=== PATIENT | female | born 1950 | race Caucasian/White ===

== ENCOUNTER → 2019-03-24 | Outpatient (CLI) | payer MEDICARE ==
[2019-01-26 11:00] VITALS: BP 151/55
[~2019-03-24] MED LIST: ALEN70TA3 PO; BISO1TAB PO; BUDE0.5A NEB; BUPR150T15 PO; CALC-498 PO; DOXY100C14 PO; IPRA3AMP29 NEB; LOSA1TAB25 PO; LOVA10TA PO; METF500T16 PO; OMEP20CA16 PO; PRED20TA PO; VIT1TABL32 PO
--- NOTE | 2019-03-24 15:17 | RAD ---
CT CHEST WO CONTRAST Indication: Lung nodule Technique: Noncontrast CT imaging was performed of the chest, multiplanar reconstruction images submitted. One or more of the following individualized dose reduction techniques were utilized for this examination: 1. Automated exposure control 2. Adjustment of the mA and/or kV according to patient size 3. Use of iterative reconstruction technique. Comparison: January 25, 2019 Findings: There is some motion. There has been interval variable change. Previously seen focus of groundglass density of the right upper lobe closer to the apex is no longer present. However there are new foci of mild infiltrate and nodularity right upper lobe image 93 with largest focus of density about 0.9 cm, new focus of subsolid density of the right upper lobe image 120 series 8 up to 1.4 cm, new focus of groundglass density of the right upper lobe 0.8 cm image 133 series 8. Approximate 0.7 cm focus of subpleural nodularity of the left lower lobe image 208 series 8 is similar. There are also areas of likely atelectasis and mild groundglass density of the left lower lobe near the base fairly similar appearance such as seen image 245. 0.5 cm left lower lobe nodule image 158 is similar. There is new focus of groundglass density of the left lower lobe image 150 about 1.2 cm. Approximate 1.1 cm AP focus of somewhat tubular appearing density of the left upper lobe anteriorly extending to the pleural surface is stable in appearance. Heart is somewhat enlarged. There is no pleural or pericardial fluid. There is some coronary calcification. Thoracic cord caliber is within normal limits. No new significantly enlarged nodes are identified of the chest. There is nonspecific heterogeneity of the thyroid gland with foci of underlying nodularity as seen previously. Fullness of the left adrenal gland with underlying nodularity about 2.1 cm is similar, density measurements of about 15 Hounsfield units not diagnostic of underlying lipid rich adenoma. There has been cholecystectomy. There is multilevel thoracic spondylosis. IMPRESSION: 1. Compared with the previous January 2019 exam, there has been variable change with resolution of previously seen focus of right upper lobe groundglass density although new foci of groundglass density and mild nodularity as stated. Given the interval change, sequela of an inflammatory or infectious process seems more likely than neoplastic process although continued follow-up is recommended such as in 3-6 months as per revised Fleischner guidelines. 2. There are foci of hypodense nodularity of the thyroid gland better characterized by ultrasound. 3. There is stable nonspecific left adrenal nodule. Electronically signed by: Josh Cortés MD (03/24/2019 3:14 PM) [id number]
== END | disposition home or self-care (01) ==
LOC: CT 09:15
PROVIDERS: ATTEND Internal Medicine Critical Care Medicine
DX: R91.8 Other nonspecific abnormal finding of lung field (principal); M47.814 Spondylosis without myelopathy or radiculopathy, thoracic region; E27.8 Other specified disorders of adrenal gland; I25.10 Atherosclerotic heart disease of native coronary artery without angina pectoris
CPT/HCPCS: 71250

== ENCOUNTER → 2019-08-23 | Outpatient (CLI) | payer MEDICARE ==
[2019-01-26 11:00] VITALS: BP 151/55
--- NOTE | 2019-08-23 10:58 | RAD ---
CT scan of the chest without contrast 08/23/2019 CLINICAL HISTORY: Lung nodule. TECHNIQUE: Unenhanced, contiguous, 0.625 mm axial sections were obtained through the chest and upper abdomen. 5 mm reconstructed axial and 1 mm reconstructed axial 3 mm sagittal and coronal reconstructed images were obtained. One or more of the following individualized dose reduction techniques were utilized for this study: 1. Automated exposure control. 2. Adjustment of the mA and/or kV according to patient size. 3. Use of iterative reconstruction technique. FINDINGS: Comparison study is dated 03/24/2019. Atherosclerotic calcification of the thoracic aorta and its branches is noted. The thoracic aorta is tortuous but tapers normally. The heart is mildly enlarged. Scattered coronary artery calcifications are seen. Likely reactive mediastinal lymph nodes are seen which measure 1 to 2.3 cm in size. They are unchanged. No hilar or axillary lymphadenopathy is seen. The area of groundglass attenuation with associated nodularity seen on the previous examination within the right upper lobe has resolved. An area of scarring is seen involving the apex of the left upper lobe, unchanged. Subsegmental atelectasis is seen involving the medial aspect of the right middle lobe. Subsegmental atelectasis is seen involving the inferior lingula. The patchy areas of groundglass attenuation seen throughout both lungs on the previous examination have improved. A 5 mm nodular opacity is seen within the medial aspect of the left lower lobe. This is unchanged from the previous examination. A 5 mm pleural-based nodular opacity is seen involving the left lower lobe more inferiorly. This has decreased in size since the previous study where it measured 7 mm in size. Dependent subsegmental atelectasis is seen involving both lower lobes, left greater than right which has improved. No additional pulmonary nodule is seen. No pleural effusion or pneumothorax is noted. Images through the upper abdomen demonstrate atherosclerotic calcification of the abdominal aorta and its branches. Surgical clips are seen within the gallbladder fossa consistent with a cholecystectomy. Degenerative changes are seen involving the thoracic spine. IMPRESSION: 1. The area of groundglass attenuation with associated nodularity seen on the previous examination within the right upper lobe has resolved. 2. Two nodular opacities are seen within the left lobe lower lobe which are unchanged and/or have decreased in size since the previous study as discussed above. No new pulmonary nodule is seen. Electronically signed by: Reg Cline MD (08/23/2019 10:55 AM) [id number]
== END | disposition home or self-care (01) ==
LOC: CT 10:42
PROVIDERS: ATTEND Internal Medicine Critical Care Medicine
DX: R91.1 Solitary pulmonary nodule (principal); I70.0 Atherosclerosis of aorta; I25.10 Atherosclerotic heart disease of native coronary artery without angina pectoris; Q25.46 Tortuous aortic arch
CPT/HCPCS: 71250

== ENCOUNTER → 2019-11-21 | Outpatient (CLI) | payer MEDICARE ==
[2019-01-26 11:00] VITALS: BP 151/55
[~2019-11-21] MED LIST changes: +ZOLPIDEM 5 MG TABLET. PO ONE
--- NOTE | 2019-11-22 17:56 | SLEEP ---
DATE OF STUDY: 11/21/2019 ATTENDING PHYSICIAN: Dr. Kyle Gonzalez The patient is a 69-year-old who weighs 235 pounds with a BMI of 45. The patient's Pittsburgh score was 10. The patient underwent sleep study performed at [facility]. This was a split night study. During the night study, the patient spent 401 minutes in bed and slept for 200 minutes with a low sleep efficiency of 50%. Sleep latency was 119 minutes with a REM latency of 227 minutes. Sleep architecture showed normal stage 1 and stage 2 sleep, increased slow wave and reduced REM sleep. During the initial diagnostic portion of the study, the patient slept for 72 minutes. During that time, the patient had 1 obstructive apnea, no mixed or central apneas and 26 hypopneas. The patient's AHI was 23 per hour with a supine AHI of 23 per hour. REM sleep was not seen during the diagnostic portion. EKG monitoring revealed normal sinus rhythm. Average heart rate 78 beats per minute. No significant PLM seen. Nocturnal oximetry study revealed a mean oxygen saturation of 94% with lowest of 67%. 66% of time oxygen saturation remained between 80% and 89%. The patient met the criteria for CPAP initiation. It was started at 5 cm water and titrated up to 15 cm water. At the final pressure, the patient slept for 55 minutes. The patient had supine as well as REM sleep. The patient's AHI was reduced to 0 per hour and oxygen saturation remained above 88%. The patient used small size full face mask. IMPRESSION: 1. Moderate obstructive sleep apnea at an AHI of 23 per hour. Absence of REM sleep during the diagnostic portion can underestimate the severity of sleep apnea. 2. Nocturnal hypoxia secondary to obstructive sleep apnea, but resolved with CPAP. 3. No clinically significant periodic limb movements. RECOMMENDATIONS: 1. CPAP at 15 cm water completely eliminated the patient's sleep apnea and should be used on a nightly basis. 2. Follow up in 4-6 weeks to assess compliance with CPAP and to document clinical improvement. 3. Weight loss is strongly advised. 4. Avoid [employer] depressants. 5. Cautioned regarding driving until symptoms of sleep apnea resolve with the use of CPAP. EMANUEL RENEE MD DR: IZA/dain JOB#: [id number] / [id number] KYLE Shaikh MD
== END | disposition home or self-care (01) ==
LOC: SLPLAB 19:04
PROVIDERS: ATTEND Internal Medicine Critical Care Medicine
DX: G47.33 Obstructive sleep apnea (adult) (pediatric) (principal)
CPT/HCPCS: 95810

== ENCOUNTER → 2020-03-01 | Outpatient (CLI) | payer MEDICARE ==
[2019-01-26 11:00] VITALS: BP 151/55
[~2020-03-01] MED LIST changes: -ZOLPIDEM 5 MG TABLET. PO ONE
--- NOTE | 2020-03-02 09:33 | RAD ---
Examination: CT THORAX WO History: lung nodule / Comparison/Correlation: None Findings: Axial images of chest were obtained without contrast. Sagittal and coronal reformatted imag es were provided. Linear atelectasis or scarring in the left lung base is present. Minimal right costophrenic sulcus at electasis is present. No pneumothorax. No enlarged thoracic lymph nodes. Nodule at the medial left mid lung on axial image 150 of series 8 measures up to 0.5 cm diameter scott lar to prior exam. Left posterolateral basilar linear atelectasis adjacent to the pleura is present o n axial image 219 of series 8 and obscures a juxtapleural nodule previously seen measuring up to 0.6 cm diameter. Groundglass infiltrate at the posterior right upper and midlung region on axial image 137 of series 8 measuring 0.8 cm diameter noted. No pleural or pericardial effusion. Cholecystectomy noted. Adenomatous involvement of the left adrena l gland is noted. No acute bony process. Impression: Some new groundglass infiltrate at the right midlung region is small in size. Left medial mid thoraci c pulmonary nodule is stable. Left posterior lateral lung basilar nodule is obscured with atelectasis present in this region in the interval. Short-term interval follow-up in 3 months is recommended by CT to assess stability. PQRS Compliance Statement: One or more of the following individualized dose reduction techniques were utilized for this examinat ion: 1. Automated exposure control 2. Adjustment of the mA and/or kV according to patient size 3. Use of iterative reconstruction technique Electronically signed by: Marcos Sprague MD (03/02/2020 9:31 AM) [id number]
== END ==
LOC: CT 13:35
PROVIDERS: ATTEND Internal Medicine Critical Care Medicine
DX: J98.11 Atelectasis (principal); R91.1 Solitary pulmonary nodule; Z90.49 Acquired absence of other specified parts of digestive tract
CPT/HCPCS: 71250